=== PATIENT | female | born 1940 | race Caucasian/White ===

== ENCOUNTER → 2019-03-08 | Outpatient (CLI) | payer MEDICARE | END | disposition home or self-care (01) | LOC: CFH 08:50 | PROVIDERS: ATTEND Nurse Practitioner Family | DX: M81.8 Other osteoporosis without current pathological fracture (principal); Z78.0 Asymptomatic menopausal state | CPT/HCPCS: 77080 ==

== ENCOUNTER → 2020-05-28 | Outpatient (CLI) | payer MEDICARE ==
[~2020-05-28] MED LIST: AMLO-150 PO; ATOR20TA37 PO; CYCL10TA2 PO; HYDR-1067 PO; LORA10TA75 PO; LOSA100T14 PO
[2020-05-28 09:39] LABS: BASOPHILS % (AUTO) 1 % (0-1); EOSINOPHILS % (AUTO) 1 % (1-7); LYMPHOCYTES % (AUTO) 20 % (22-44); MD NO; MEAN CORPUSCULAR HEMOGLOBIN 31.1 pg (27.0-34.8); MEAN CORPUSCULAR HGB CONC 33.9 g/dL (32.4-35.8); MEAN PLATELET VOLUME 9.6 fL (7.4-10.4); MONOCYTES % (AUTO) 7 % (2-9); NEUTROPHILS % (AUTO) 72 % (42-75); PLATELET COUNT 200 x10^3/uL (130-400); RED BLOOD COUNT 4.88 x10^6/uL (3.82-5.3); RED CELL DISTRIBUTION WIDTH 15.3 % (9.6-15.2)
[2020-05-28 09:42] LABS: MICROSCOPIC AUTO
[2020-05-28 09:47] LABS: ALBUMIN 3.7 g/dL (3.4-5.0); ANION GAP 4 mmol/L (5-15); CALCIUM 9.2 mg/dL (8.5-10.1); CHLORIDE 106 mmol/L (98-107); INTERNATIONAL NORMALIZED RATIO 0.97 (0.93-1.1); PROTHROMBIN TIME 10.4 Seconds (9.6-11.5)
[2020-05-28 10:07] LABS: ALANINE AMINOTRANSFERASE 22 U/L (12-78); ALKALINE PHOSPHATASE 107 U/L (45-117); BILIRUBIN,TOTAL 0.6 mg/dL (0.2-1.0); CREATININE 1.02 mg/dL (0.55-1.02); TOTAL PROTEIN 7.3 g/dL (6.4-8.2)
== END | disposition home or self-care (01) ==
LOC: STAR 08:06
PROVIDERS: ATTEND Neurological Surgery
DX: Z01.818 Encounter for other preprocedural examination (principal); Z01.812 Encounter for preprocedural laboratory examination; Z01.811 Encounter for preprocedural respiratory examination; Z01.810 Encounter for preprocedural cardiovascular examination; R94.31 Abnormal electrocardiogram [ECG] [EKG]; R82.90 Unspecified abnormal findings in urine; M48.061 Spinal stenosis, lumbar region without neurogenic claudication; M54.5 Low back pain; R79.1 Abnormal coagulation profile; M51.16 Intervertebral disc disorders with radiculopathy, lumbar region; I25.2 Old myocardial infarction
CPT/HCPCS: 36415; 71046; 72110; 80053; 81001; 85025; 85610; 85730; 87086; 93005

== ENCOUNTER 2020-06-03 05:39 | Inpatient (IN) | payer MEDICARE ==
[~2020-06-03] VITALS: Ht 162.6 cm; Wt 62.2 kg
[2020-06-03] MEDS ORDERED: CHLORHEXIDINE 15 ML UDC MM STA (06:04)
[2020-06-03] MEDS ORDERED: LACTATED RINGERS 1,000 ML IV SCH (06:30)
[2020-06-03] MEDS ORDERED: BUPIVACAINE 0.25% ONE (06:34)
[2020-06-03] MEDS ORDERED: BUPIVACAINE/PF 0.25% ONE (06:34)
[2020-06-03] MEDS ORDERED: BACITRACIN 50,000 UNIT ONE (06:34)
[2020-06-03] MEDS ORDERED: FENTANYL PF 250 MCG/5ML ONE (06:48)
[2020-06-03] MEDS ORDERED: PROPOFOL 50 ML ONE ×3 (07:08→08:04)
[2020-06-03] MEDS ORDERED: ACETAMINOPHEN 325 MG TABLET PO PRN (09:00)
[2020-06-03] MEDS ORDERED: ONDANSETRON 2MG/ML, 2ML IVPush PRN (09:00)
[2020-06-03] MEDS ORDERED: FENTANYL PF 100 MCG/2ML IV PRN (09:00)
[2020-06-03] MEDS ORDERED: LORazepam 2 MG/ML, 1ML IVPush PRN (09:00)
[2020-06-03] MEDS ORDERED: LABETALOL 5MG/ML, 20ML IV PRN (09:00)
[2020-06-03] MEDS ORDERED: MEPERIDINE/PF 25MG/0.5ML IVPush PRN (09:00)
[2020-06-03] MEDS ORDERED: HYDROmorphone 1 MG/ML, 1ML INJ IVPush PRN (09:00)
[2020-06-03] MEDS ORDERED: OXYcodone 5 MG/5 ML ORAL.SOL UDC PO PRN (09:00)
[2020-06-03] MEDS ORDERED: METHOCARBAMOL 1,000 MG in DEXTROSE 5% 100 ML IV PRN (09:00)
[2020-06-03] MEDS ORDERED: hydrALAzine 20 MG/ML, 1ML IV PRN (09:00)
[2020-06-03] MEDS ORDERED: EPHEDRINE 50 MG/ML, 1ML IVPush PRN (09:00)
[2020-06-03] MEDS ORDERED: FENTANYL PF 100 MCG/2ML ONE (09:22)
[2020-06-03] MEDS ORDERED: KETOROLAC 30 MG/1 ML ONE (10:32)
[2020-06-03 11:03] VITALS: BP 110/64
[2020-06-03] MEDS ORDERED: PROMETHAZINE 25 MG/ML, 1ML IM PRN (12:00)
[2020-06-03] MEDS ORDERED: ONDANSETRON 2MG/ML, 2ML IV PRN (12:00)
[2020-06-03] MEDS ORDERED: DIPHENHYDRAMINE 50 MG/ML, 1ML IM PRN (12:00)
[2020-06-03] MEDS ORDERED: DIPHENHYDRAMINE 25 MG CAPSULE PO PRN (12:00)
[2020-06-03] MEDS ORDERED: morphine SULFATE 10 MG/ML, 1ML IV PRN (12:00)
[2020-06-03] MEDS ORDERED: DIPHENHYDRAMINE 50 MG/ML, 1ML IVPush PRN (12:00)
[2020-06-03] MEDS ORDERED: MAGNESIUM HYDROXIDE 8%, 30ML UDC PO PRN (12:00)
[2020-06-03] MEDS ORDERED: BISACODYL 10 MG SUPP PR PRN (12:00)
[2020-06-03] MEDS ORDERED: METHOCARBAMOL MC SCH (12:30)
[2020-06-03] MEDS ORDERED: OXYcodone IR 5MG TABLET PO PRN ×2 (12:30)
[2020-06-03] MEDS ORDERED: CYCLOBENZAPRINE MC SCH (12:30)
[2020-06-03 13:00] VITALS: BP 100/60
[2020-06-03] MEDS: LABETALOL 5MG/ML, 20ML IV SCH ×2 (13:01→20:18)
[2020-06-03] MEDS: NS + 20MEQ KCL 1,000 ML IV SCH ×2 (13:02→22:53)
[2020-06-03 14:13] VITALS: BP 115/48
[2020-06-03] MEDS ORDERED: ROCURONIUM 10MG/ML,5ML ONE (15:27)
[2020-06-03] MEDS ORDERED: GLYCOPYRROLATE 0.2MG/1ML, 5ML ONE (15:27)
[2020-06-03] MEDS ORDERED: SUCCINYLCHOLINE 20 MG/ML, 10ML ONE (15:27)
[2020-06-03] MEDS ORDERED: DEXAMETHASONE 4 MG/ML, 1ML ONE (15:27)
[2020-06-03] MEDS ORDERED: NEOSTIGMINE 1 MG/ML, 10ML ONE (15:27)
[2020-06-03] MEDS ORDERED: ONDANSETRON 2MG/ML, 2ML ONE (15:27)
[2020-06-03] MEDS ORDERED: PROPOFOL 10 MG/ML, 20ML ONE (15:27)
[2020-06-03] MEDS ORDERED: CEFAZOLIN 1,000 MG ONE (15:27)
[2020-06-03] MEDS: HYDROcodone/APAP 5/325 TABLET PO PRN ×2 (15:50→20:53)
[2020-06-03] MEDS: CEFAZOLIN PMX 1GM/50ML 50 ML IV SCH (17:31)
[2020-06-03] MEDS: METHOCARBAMOL 750 MG in DEXTROSE 5% 100 ML IV SCH (18:09)
[2020-06-03 19:30] VITALS: BP 109/64
[2020-06-03] MEDS: ATORVASTATIN 20 MG TABLET PO SCH (20:45)
[2020-06-03 23:39] VITALS: BP 111/77
[2020-06-04] MEDS: CEFAZOLIN PMX 1GM/50ML 50 ML IV SCH ×2 (01:43→08:51)
[2020-06-04] MEDS: METHOCARBAMOL 750 MG in DEXTROSE 5% 100 ML IV SCH ×3 (02:34→17:20)
[2020-06-04 03:56] VITALS: BP 125/85
[2020-06-04] MEDS: LABETALOL 5MG/ML, 20ML IV SCH ×3 (04:30→20:25)
[2020-06-04 05:39] LABS: CREATININE 1.07 mg/dL (0.55-1.02)
[2020-06-04] MEDS: HYDROcodone/APAP 5/325 TABLET PO PRN ×2 (05:47→17:40)
[2020-06-04 08:05] VITALS: BP 126/77
[2020-06-04] MEDS: LORATADINE 10 MG TABLET PO SCH (08:51)
[2020-06-04] MEDS: SENNA/DOCUSATE TABLET PO SCH (08:52)
[2020-06-04] MEDS: ENOXAPARIN 40 MG/0.4 ML SQ SCH (08:52)
[2020-06-04] MEDS: AMLODIPINE 5 MG TABLET PO SCH (08:52)
[2020-06-04] MEDS: LOSARTAN 100 MG TAB PO SCH (08:52)
[2020-06-04 13:57] VITALS: BP 129/65
[2020-06-04 19:20] VITALS: BP 98/62
[2020-06-04] MEDS: NS + 20MEQ KCL 1,000 ML IV SCH (20:00)
[2020-06-04] MEDS: ATORVASTATIN 20 MG TABLET PO SCH (20:26)
[2020-06-05 00:25] VITALS: BP 115/69
[2020-06-05] MEDS: METHOCARBAMOL 750 MG in DEXTROSE 5% 100 ML IV SCH ×2 (02:38→09:48)
[2020-06-05] MEDS: LABETALOL 5MG/ML, 20ML IV SCH (04:30)
[2020-06-05] MEDS: NS + 20MEQ KCL 1,000 ML IV SCH (04:47)
[2020-06-05 06:20] VITALS: BP 126/62
[2020-06-05] MEDS: AMLODIPINE 5 MG TABLET PO SCH (07:55)
[2020-06-05] MEDS: LOSARTAN 100 MG TAB PO SCH (07:55)
[2020-06-05] MEDS: ENOXAPARIN 40 MG/0.4 ML SQ SCH (07:55)
[2020-06-05] MEDS: SENNA/DOCUSATE TABLET PO SCH (07:55)
[2020-06-05] MEDS: LORATADINE 10 MG TABLET PO SCH (07:55)
[2020-06-05] MEDS: HYDROcodone/APAP 5/325 TABLET PO PRN ×2 (08:08→12:07)
[2020-06-05] MEDS ORDERED: HYDR-1067 PO (08:46)
[2020-06-05] MEDS ORDERED: CYCL10TA2 PO (08:46)
[2020-06-05] MEDS ORDERED: METHOCARBAMOL 750 MG TABLET PO SCH (18:15)
== END 2020-06-05 12:25 | disposition home health service (06) | DRG 520 ==
LOC: OUT 05:39 → 4NE 10:56 → OUT 11:09 → OBSVTOIN 11:09 → DCLOUNGE 06-05 12:18
PROVIDERS: ADMIT Neurological Surgery; ATTEND Neurological Surgery
PROC: 01NB0ZZ Release Lumbar Nerve, Open Approach (ICD-10-PCS; 2020-06-03)
PROC: 4A1134G Monitoring of Peripheral Nervous Electrical Activity, Intraoperative, Percutaneous Approach (ICD-10-PCS; 2020-06-03)
PROC: 00NY0ZZ Release Lumbar Spinal Cord, Open Approach (ICD-10-PCS; principal; 2020-06-03 07:30)
DX: M48.062 Spinal stenosis, lumbar region with neurogenic claudication (principal); M47.816 Spondylosis without myelopathy or radiculopathy, lumbar region; M43.16 Spondylolisthesis, lumbar region
CPT/HCPCS: 36415; 72100; 82565; C1729; J0690; J1100; J1650; J2405; J2704; J2710; J3010; J3480; C1751; G0378; J0330; J2800; J7120